=== PATIENT | male | born 1945 | race Caucasian/White ===

== ENCOUNTER → 2018-05-28 | Outpatient (CLI) | payer MEDICARE, BC ==
[~2018-05-28] MED LIST: IOHEXOL 180 MG/ML 10 ML VIAL.; LIDOCAINE 1% PF 2 ML VIAL.; methylPREDNISolone ACETATE 40 MG/ML VIAL.; methylPREDNISolone ACETATE 80 MG/ML VIAL.
== END ==
LOC: PNCL 10:12
DX: M51.16 Intervertebral disc disorders with radiculopathy, lumbar region (principal); M48.061 Spinal stenosis, lumbar region without neurogenic claudication; M96.1 Postlaminectomy syndrome, not elsewhere classified; I10 Essential (primary) hypertension; I25.10 Atherosclerotic heart disease of native coronary artery without angina pectoris; Z87.39 Personal history of other diseases of the musculoskeletal system and connective tissue; Z96.653 Presence of artificial knee joint, bilateral; Z98.890 Other specified postprocedural states
CPT/HCPCS: 62323; J1030; J1040; Q9965

== ENCOUNTER → 2018-06-11 | Outpatient (CLI) | payer MEDICARE, BC | END | disposition home or self-care (01) | LOC: PNCL 09:32 | DX: M51.16 Intervertebral disc disorders with radiculopathy, lumbar region (principal); M48.061 Spinal stenosis, lumbar region without neurogenic claudication; M96.1 Postlaminectomy syndrome, not elsewhere classified; I25.10 Atherosclerotic heart disease of native coronary artery without angina pectoris; I10 Essential (primary) hypertension; Z98.890 Other specified postprocedural states; Z96.653 Presence of artificial knee joint, bilateral; Z87.39 Personal history of other diseases of the musculoskeletal system and connective tissue | CPT/HCPCS: 62323; J1030; J1040; Q9965 ==

== ENCOUNTER → 2018-06-25 | Outpatient (CLI) | payer MEDICARE, BC | END | disposition home or self-care (01) | LOC: PNCL 09:02 | DX: M51.16 Intervertebral disc disorders with radiculopathy, lumbar region (principal); M48.061 Spinal stenosis, lumbar region without neurogenic claudication; I10 Essential (primary) hypertension; I25.10 Atherosclerotic heart disease of native coronary artery without angina pectoris; Z87.39 Personal history of other diseases of the musculoskeletal system and connective tissue; Z96.653 Presence of artificial knee joint, bilateral | CPT/HCPCS: G0463 ==

== ENCOUNTER → 2018-07-01 | Outpatient (CLI) | payer MEDICARE, BC ==
[~2018-07-01] MED LIST changes: -LIDOCAINE 1% PF 2 ML VIAL.
== END | disposition home or self-care (01) ==
LOC: PNCL 08:12
DX: M51.16 Intervertebral disc disorders with radiculopathy, lumbar region (principal); M48.061 Spinal stenosis, lumbar region without neurogenic claudication; M96.1 Postlaminectomy syndrome, not elsewhere classified; I10 Essential (primary) hypertension; I25.10 Atherosclerotic heart disease of native coronary artery without angina pectoris; Z87.39 Personal history of other diseases of the musculoskeletal system and connective tissue; Z96.653 Presence of artificial knee joint, bilateral; Z98.890 Other specified postprocedural states; Z79.899 Other long term (current) drug therapy
CPT/HCPCS: 62323; J1030; J1040; Q9965

== ENCOUNTER → 2018-07-30 | Outpatient (CLI) | payer MEDICARE, BC ==
[~2018-07-30] MED LIST changes: +ALFU10TA3 PO; +ALLO100T PO; +ATOR10TA60 PO; +CARV12.52 PO; +FENO145T30 PO; -IOHEXOL 180 MG/ML 10 ML VIAL.; +IOHEXOL 180 MG/ML 10 ML VIAL. IT ONE; +LANS30CA PO; +LIDOCAINE WITH 8.4% SOD BICARB 3 ML DISP.SYRIN. INJ ONE; +LISI-334 PO; +TICA90TA PO; -methylPREDNISolone ACETATE 40 MG/ML VIAL.; -methylPREDNISolone ACETATE 80 MG/ML VIAL.
[2018-07-30 13:40] VITALS: BP 127/71
--- NOTE | 2018-07-30 14:14 | RAD ---
Lumbar myelogram, 07/30/2018: History: Right leg pain, ruptured disc, previous back surgery Under local anesthesia, aseptic conditions and fluoroscopic guidance a lumbar puncture was performed at the mid L2 level utilizing a 25-gauge Mary Jo spinal needle. Good clear CSF flow was obtained following which 14 cc of Omnipaque 180 was injected into the thecal sac. The spinal needle was then removed and hemostasis obtained. Appropriate lumbar digital imaging was then performed. 2.9 minutes of fluoroscopy time was utilized. 12 fluoroscopic spot images were recorded. The patient tolerated the procedure well and was sent to CT in good condition. The following findings were delineated on the myelogram: 1. Bilateral pedicle screws are in place at L4 and L5 attached longitudinally oriented posterior fixation rods. There is a partially radiopaque disc spacer present at L4-5. 2. There is mild retrolisthesis at L3-4 and to a greater degree at L2-3. This shows very little if any change with upright flexion and extension maneuvers. 3. There is no significant central spinal stenosis from L4 down through S1. 4. At L3-4 there are bilateral extradural defects resulting in moderate narrowing of the width of the thecal sac. 5. At L2-3 there is a moderate anterior extradural defect and mild bilateral extradural defects producing mild narrowing of the thecal sac. 6. At L1-2 there is a moderate anterior extradural defect. CT of the lumbar spine-post myelogram, 07/30/2018: Multidetector CT images were performed with multiplanar reconstructions produced. The following findings are delineated: 1. On the upper most images there are prominent posterior marginal spurs at the T11-12 level this produces mild central spinal stenosis with the thecal sac measuring 7-8 mm in AP diameter. 2. At T12-L1 the central spinal canal and neural foramina are well maintained. 3. At L1-2 there is severe degenerative disc disease with a prominent posterior spur. This extends inferiorly from the disc level. There is a slight retrolisthesis in the supine position for the CT scans. The thecal sac narrows down to an AP diameter of 6-7 mm at the midline. There is mild to moderate inferior foraminal narrowing bilaterally due to the spurring. 4. At L2-3 there is severe degenerative disc disease with moderate posterior spurring there are moderate degenerative changes involving the facet joints with a mild retrolisthesis. The thecal sac narrows down to an AP diameter of 6-7 mm at the midline. The spurring and retrolisthesis is causing moderate bilateral bony foraminal stenosis. 5. At L3-4 there is a slight retrolisthesis in the supine position. There is moderate broad-based posterior disc bulging. There are degenerative changes involving the facet joints with posterior ligamentous thickening. This is producing moderate narrowing of the width of the thecal sac as well as mild to moderate bilateral foraminal narrowing. 6. The surgical implants at L4 and L5 produce artifacts which partially degrade image quality through this region. The central spinal canal is well maintained. There is only minimal foraminal narrowing due to spurring. 7. At L5-S1 there is severe degenerative disc disease with large posterior spurs. There is extensive degenerative change and spurring involving the facet joints bilaterally. The combination of findings is causing moderate bilateral bony foraminal narrowing. The thecal sac measures 8-9 mm in AP diameter at the midline. 8. Incidental note is made of bilateral intrarenal calculi. There is moderate aortic calcific plaque. IMPRESSION: 1. Moderately to severe multilevel degenerative change as described above. 2. Previous posterior spinal fusion and instrumentation at L4-5 without significant stenosis in that region. 3. Mild retrolisthesis at L3-4 and to a greater degree at L2-3 which in conjunction with other degenerative changes is causing moderate central spinal stenosis at those levels as well as bilateral foraminal encroachment, worse at L2-3. 4. Mild to moderate central spinal stenosis at L1-2 and at T11-12 due to large posterior marginal spurs. 5. Moderate bilateral foraminal narrowing at L5-S1 due to spurring. PQRS Compliance Statement: One or more of the following individualized dose reduction techniques were utilized for this examination: 1. Automated exposure control 2. Adjustment of the mA and/or kV according to patient size 3. Use of iterative reconstruction technique
[2018-07-30 14:20] VITALS: BP 131/80
== END | disposition home or self-care (01) ==
LOC: RAD 12:25
PROVIDERS: ATTEND Neurological Surgery
DX: M48.061 Spinal stenosis, lumbar region without neurogenic claudication (principal); M48.07 Spinal stenosis, lumbosacral region; M51.37 Other intervertebral disc degeneration, lumbosacral region; Z79.899 Other long term (current) drug therapy; Z96.653 Presence of artificial knee joint, bilateral; Z87.39 Personal history of other diseases of the musculoskeletal system and connective tissue
CPT/HCPCS: 72132; 72265; Q9965

== ENCOUNTER → 2019-02-03 | Outpatient (CLI) | payer MEDICARE, BC ==
[2018-07-30 14:20] VITALS: BP 131/80
[~2019-02-03] MED LIST changes: +ASPI-630 PO; +CARV12.511 PO; -CARV12.52 PO; +CHOL100013 PO; -IOHEXOL 180 MG/ML 10 ML VIAL. IT ONE; -LIDOCAINE WITH 8.4% SOD BICARB 3 ML DISP.SYRIN. INJ ONE; +NITR0.4T22 SL; +TRAM50TA PO; +WARF2TAB96 PO
[2019-02-03 09:26] LABS: BASO # 0.1 x10^3/uL (0.0-0.2); BASO % 1 % (0-3); EOS % 1 % (0-3); HEMATOCRIT 41.6 % (39.0-53.0); HEMOGLOBIN 13.3 g/dL (13.0-17.5); LYMPH # 2.2 x10^3/uL (1.0-4.8); LYMPH % 26 % (24-48); MEAN CORPUSCULAR HEMOGLOBIN 29 pg (25-35); MEAN CORPUSCULAR HGB CONC 32 g/dL (31-37); MEAN CORPUSCULAR VOLUME 90 fL (79-100); MONO # 0.8 x10^3/uL (0.0-1.1); MONO % 10 % (0-9); NEUT # 5.2 x10^3uL (1.8-7.7); NEUT % 62 % (31-73); PLATELET COUNT 320 x10^3/uL (140-400); RED BLOOD COUNT 4.62 x10^6/uL (4.30-5.70); RED CELL DISTRIBUTION WIDTH 15.7 % (11.5-14.5); WHITE BLOOD COUNT 8.4 x10^3/uL (4.0-11.0)
[2019-02-03 09:40] LABS: BILIRUBIN,URINE NEGATIVE (NEG); CLARITY,URINE CLEAR; COLOR,URINE YELLOW; NITRITE,URINE NEGATIVE (NEG); PROTEIN,URINE NEGATIVE (NEG-TRACE); UROBILINOGEN,URINE 0.2 mg/dL (0.2 mg/dL)
[2019-02-03 09:42] LABS: PROTHROMBIN TIME PATIENT 15.4 SEC (11.7-14.0)
[2019-02-03 09:54] LABS: BACTERIA,URINE 0 /HPF (0-FEW); SQUAMOUS EPITHELIAL CELL,UR FEW /LPF; WBC,URINE 0 /HPF (0-4)
[2019-02-03 10:06] LABS: ALBUMIN 3.2 g/dL (3.4-5.0); CALCIUM 9.3 mg/dL (8.5-10.1); CREATININE 1.1 mg/dL (0.7-1.3); POTASSIUM 4.4 mmol/L (3.5-5.1)
--- NOTE | 2019-02-03 14:26 | RAD ---
EXAM: Chest, 2 views. HISTORY: Hypertension. Preoperative evaluation. COMPARISON: None. FINDINGS: 2 views the chest are obtained. There is no infiltrate, pleural effusion or pneumothorax. The heart is normal in size. IMPRESSION: No acute pulmonary finding. Electronically signed by: Rea Sykes MD (02/03/2019 2:23 PM) [id number]
== END | disposition home or self-care (01) ==
LOC: SURGPAT 13:13
PROVIDERS: ATTEND Orthopaedic Surgery
DX: M16.11 Unilateral primary osteoarthritis, right hip (principal)
CPT/HCPCS: 36415; 71046; 80048; 81001; 82040; 85025; 85610; 85651; 85730; 87641

== ENCOUNTER → 2019-07-07 | Outpatient (CLI) | payer MEDICARE, BC ==
[2019-02-21 07:44] VITALS: BP 145/71
[~2019-07-07] MED LIST changes: +ASPI81TA50 PO; +CHOL100016 PO; +OXYC5CAP PO; +WARF1TAB69 PO
[2019-07-07 11:39] LABS: BASO # 0.1 x10^3/uL (0.0-0.2); BASO % 1 % (0-3); EOS # 0.2 x10^3/uL (0.0-0.7); EOS % 2 % (0-3); HEMATOCRIT 40.7 % (39.0-53.0); HEMOGLOBIN 13.6 g/dL (13.0-17.5); LYMPH # 1.5 x10^3/uL (1.0-4.8); LYMPH % 17 % (24-48); MEAN CORPUSCULAR HEMOGLOBIN 29 pg (25-35); MEAN CORPUSCULAR HGB CONC 33 g/dL (31-37); MEAN CORPUSCULAR VOLUME 87 fL (79-100); MONO # 0.6 x10^3/uL (0.0-1.1); MONO % 7 % (0-9); NEUT # 6.5 x10^3/uL (1.8-7.7); NEUT % 74 % (31-73); PLATELET COUNT 263 x10^3/uL (140-400); RED BLOOD COUNT 4.68 x10^6/uL (4.30-5.70); RED CELL DISTRIBUTION WIDTH 15.9 % (11.5-14.5); WHITE BLOOD COUNT 8.8 x10^3/uL (4.0-11.0)
[2019-07-07 11:43] LABS: BILIRUBIN,URINE NEGATIVE (NEG); CLARITY,URINE CLEAR; COLOR,URINE YELLOW; NITRITE,URINE NEGATIVE (NEG); PH,URINE 5.5; PROTEIN,URINE NEGATIVE (NEG-TRACE); UROBILINOGEN,URINE 0.2 mg/dL (0.2 mg/dL)
[2019-07-07 11:46] LABS: ALBUMIN 3.2 g/dL (3.4-5.0); CALCIUM 8.9 mg/dL (8.5-10.1); CREATININE 1.1 mg/dL (0.7-1.3); GFR 65.8; POTASSIUM 4.2 mmol/L (3.5-5.1)
[2019-07-07 11:49] LABS: PROTHROMBIN TIME PATIENT 15.4 SEC (11.7-14.0)
[2019-07-07 11:52] LABS: BACTERIA,URINE 0 /HPF (0-FEW); RBC,URINE OCC /HPF (0-2); SQUAMOUS EPITHELIAL CELL,UR MOD /LPF; WBC,URINE OCC /HPF (0-4)
== END | disposition home or self-care (01) ==
LOC: SURGPAT 10:21
PROVIDERS: ATTEND Orthopaedic Surgery
DX: Z01.818 Encounter for other preprocedural examination (principal); M17.12 Unilateral primary osteoarthritis, left knee; Z79.899 Other long term (current) drug therapy
CPT/HCPCS: 36415; 80048; 81001; 82040; 82306; 85025; 85610; 85651; 85730; 87641

== ENCOUNTER 2019-07-22 07:30 | Inpatient (IN) | payer MEDICARE, BC ==
[~2019-07-22] VITALS: Ht 172.7 cm; Wt 106.1 kg
[~2019-07-22 07:30] MED LIST changes: -CHOL100016 PO; -OXYC5CAP PO; -WARF1TAB69 PO
[2019-08-05] VITALS (8 sets, daily range): BP systolic 139–160; BP diastolic 70–90
[2019-08-05] MEDS ORDERED: HYDROcodone/APAP 7.5/325MG 1 TAB TABLET PO PRN (06:00)
[2019-08-05] MEDS ORDERED: TRANEXAMIC ACID 1,000 MG in IV NS 50ML -- 1ST BAG INJ ONE (06:00)
[2019-08-05] MEDS ORDERED: MORPHINE SULFATE 5 MG, KETOROLAC 30MG VIAL 30 MG, ROPIVacaine 0.5% PF 60 ML, EPINEPHrin... INT ART ONE ×5 (06:00)
[2019-08-05] MEDS ORDERED: MELOXICAM 7.5 MG TABLET PO PRN (06:00)
[2019-08-05] MEDS ORDERED: fentaNYL PF VIAL 100 MCG/2 ML VIAL IV PRN ×2 (07:00→10:15)
[2019-08-05] MEDS ORDERED: PROCHLORPERAZINE 10 MG/2 ML VIAL. IV PRN (07:00)
[2019-08-05] MEDS ORDERED: ONDANSETRON PF 4 MG/2 ML VIAL. IV PRN (07:00)
[2019-08-05] MEDS ORDERED: HYDROmorphone 2 MG/ML VIAL IV PRN (07:00)
[2019-08-05] MEDS ORDERED: IV RINGERS,LACTATED 1000ML 1,000 ML IV SCH (07:00)
[2019-08-05] MEDS ORDERED: TRANEXAMIC ACID 1,000 MG in IV NS 50ML -- 2ND BAG INJ ONE (08:00)
[2019-08-05] MEDS ORDERED: ROCURONIUM 50 MG/5 ML VIAL. ONE (09:10)
[2019-08-05] MEDS ORDERED: fentaNYL PF VIAL 250 MCG/5 ML VIAL ONE (09:10)
[2019-08-05] MEDS ORDERED: DEXAMETHASONE SOD PHOS 4 MG/ML VIAL ONE (09:10)
[2019-08-05] MEDS ORDERED: ONDANSETRON PF 4 MG/2 ML VIAL. ONE (09:10)
[2019-08-05] MEDS ORDERED: PROPOFOL 20 ML IV ONE (09:10)
[2019-08-05] MEDS ORDERED: LIDOCAINE 2% PF 5 ML VIAL. ONE (09:10)
[2019-08-05] MEDS ORDERED: CHOL100016 PO (09:35)
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
[2019-08-05] MEDS ORDERED: NITROGLYCERIN SUBLINGUAL 0.4 MG BOTTLE OF 25. SL PRN (10:15)
[2019-08-05] MEDS ORDERED: IV DEXTROSE 5% 250 ML BAG. IV PRN (10:15)
[2019-08-05] MEDS ORDERED: diphenhydrAMINE 50 MG/ML VIAL IV PRN (10:15)
[2019-08-05] MEDS ORDERED: 0.9 % SODIUM CHLORIDE 10 ML DISP.SYRIN. IV PRN (10:15)
[2019-08-05] MEDS ORDERED: DEXTROSE 50% 25 GM / 50ML DISP.SYRIN. IV PRN (10:15)
[2019-08-05] MEDS ORDERED: MORPHINE SULFATE 2 MG/ML VIAL. IV PRN (10:15)
[2019-08-05] MEDS ORDERED: ZOLPIDEM 5 MG TABLET. PO PRN (10:15)
[2019-08-05] MEDS ORDERED: CALCIUM CARBONATE 500 MG TAB.CHEW PO PRN (10:15)
[2019-08-05] MEDS ORDERED: PROCHLORPERAZINE 5 MG TABLET. PO PRN (10:15)
[2019-08-05 10:16] LABS: PROTHROMBIN TIME PATIENT 15.8 SEC (11.7-14.0)
[2019-08-05] MEDS ORDERED: PHENYLEPHRINE in 0.9% NACL PF 1 MG/10 ML SYRINGE. IV ONE (10:32)
[2019-08-05] MEDS ORDERED: ePHEDrine PF IN SALINE 50 MG/10 ML SYRINGE. IV ONE (10:41)
--- NOTE | 2019-08-05 10:48 | NUR ---
Pharmacy Warfarin Dosing Note S:Pharmacy consulted to assist with anticoagulation therapy started 08/05/19 with target INR: 1.6 - 2.5 O:ENRICO BECK is a 74 year old M with CIRILO LABS: Last INR: 1.3 Last HGB: Last HCT: Last PLT: Last dose of 5 mg given on 08/04/19 at 1700 Previous Regimen: Vitamin K given: Drug Interaction Changes: Ongoing Drug Interactions: A:INR of 1.3 is below desired range. Target range for this patient is: 1.6 - 2.5 P: Warfarin dose: 6 mg Today at 1600 Bridge Therapy: Next INR due IN AM Pharmacy anticoagulation service will continue to follow. KIERAN GUAN [facility], 08/05/19 [id number]
[2019-08-05] MEDS ORDERED: NEOSTIGMINE METHYLSULFATE 5 MG/5 ML SYRINGE. ONE (11:41)
[2019-08-05] MEDS ORDERED: GLYCOPYRROLATE 1 MG/5 ML VIAL. ONE (11:41)
[2019-08-05] MEDS ORDERED: SEVOFLURANE 61 TO 120 MINUTES. IH ONE (11:58)
[2019-08-05] MEDS: ONDANSETRON PF 4 MG/2 ML VIAL. IV SCH ×2 (12:00→17:50)
[2019-08-05] MEDS: ONDANSETRON ODT 4 MG TAB.RAPDIS. PO SCH ×2 (12:00→17:50)
[2019-08-05] MEDS ORDERED: MORPHINE SULFATE 2 MG/ML VIAL. ONE (12:28)
[2019-08-05] MEDS: MORPHINE SULFATE 2 MG/ML VIAL. IV PRN ×2 (12:31→12:42)
[2019-08-05] MEDS ORDERED: fentaNYL PF VIAL 100 MCG/2 ML VIAL ONE (12:39)
[2019-08-05] MEDS: fentaNYL PF VIAL 100 MCG/2 ML VIAL IV PRN ×2 (12:42→12:52)
--- NOTE | 2019-08-05 12:58 | PDOC4 ---
Operative Note Operative Note Date of surgery: 08/05/2019 Preoperative diagnosis: Degenerative joint disease left hip Postoperative diagnosis: Same Operative procedure: Left total hip arthroplasty Surgeon: Nimco Assist: Richard Jimenez nurse practitioner Anesthesia: Gen. Estimated blood loss: 200 mL Complications: None Specimen: Femoral head to pathology Operative indications: Please see my dictated clinic notes and preoperative history and physical for detailed operative indications note that the patient had a previous hip arthroplasty on the contralateral side and was very pleased and is now having symptoms with the degenerative hip very limiting to his activities of daily living. I had reviewed risks benefits postoperative course including the possibility of infection leg length inequality nerve or blood vessel damage medical or other anesthetic complications among others. He is certainly familiar with the procedure and all questions were answered informed consent was obtained to proceed with total hip arthroplasty. Operative text: Patient was identified procedure verified patient placed in the supine position on the operating table. After adequate amounts of general anesthesia were administered she was placed in the decubitus position left side up with the Stulberg hip positioner and all bony prominences well-padded. The hip was then prepped and draped in standard sterile fashion. After timeout was performed patient procedure identified and verified a standard posterior approach was carried out with a curvilinear incision centered over the greater trochanter iliotibial band and gluteal fascia were divided in line with their fibers Charnley retractor was placed external rotators were divided off the insertion hip capsule was split in a T fashion hip was dislocated and femoral neck cut made with the cutting guide. Acetabulum was then exposed labrum and foveal contents were excised successive size reaming carried out up to a size 51 and a size 52 hemispherical cluster hole [employer] sticktight coated shell was impacted into place in proper version a single superiorly oriented screw 40 mm was placed with excellent fixation a 36 mm standard acetabular liner was placed and impacted. Box osteotome and reaming were then carried out and broaching carried out up to a size 14 and leg length and offset were reproduced well with a standard +12 36 mm head with excellent stability to about 70� internal rotation at 90� hip flexion. Trial broach was removed and a size 14 Synergy porous femoral component standard offset was impacted with a 36 mm +12 Oxinium femoral head impacted to engage the Snidre taper reduced and found to have equivalent leg length offset and stability. Thorough irrigation carried out normal saline solution hip capsule was repaired with #5 Ethibond suture external rotators were reapproximated to the bone intraosseously with #5 Ethibond fascia was closed with #5 Ethibond as well after placement of Hemovac drain pain catheter and injection of the pain catheter mixture throughout the joint capsule fascial closure was reinforced with #1 PDS strata fix suture subcutaneous buried Vicryl suture skin closure with abhishek and a bernard drain with Acticoat was placed. Patient was returned recovery room in stable condition having tolerated procedure well. Richard Jimenez nurse practitioner was present for the procedure and assisted in the prepping draping retraction and skin closure. JOSE LUIS DENNIS MD Aug 05, 2019 12:58
--- NOTE | 2019-08-05 13:38 | RAD ---
HIP LEFT 2V WITH PELVIS History: Postop left hip arthroplasty. Technique: AP view the pelvis and 2 additional views of the left hip. Comparison: February 18, 2019. Findings: Interval left total hip arthroplasty. Expected postoperative changes with subcutaneous and intra-articular gas. Surgical drain is noted. Normal limit. No fracture. Overlying skin abhishek. Right total hip arthroplasty. Postop changes lower spine. Impression: 1. Interval left total hip arthroplasty. No immediate hardware complications. Electronically signed by: Fili Judd DO (08/05/2019 1:35 PM) [facility]
[2019-08-05] MEDS: oxyCODONE IR 5 MG TABLET PO PRN ×3 (14:05→22:06)
--- NOTE | 2019-08-05 14:52 | NUR ---
1345 Rec'd from PACU per bed, alert/oriented, dressing to left hip clean, dry & intact, states discomfort level 05/05, ice pack to area, bilateral GREGORIA hose & SCD in place, IVF infusing into left wrist , oriented to surroundings, call light within reach
[2019-08-05] MEDS ORDERED: WARFARIN 7.5 MG TABLET. PO ONE (16:00)
[2019-08-05] MEDS ORDERED: WARFARIN 5 MG TABLET. PO ONE (16:00)
[2019-08-05] MEDS: FERROUS SULFATE 325 MG TABLET. PO SCH (16:48)
[2019-08-05] MEDS: CARVEDILOL 12.5 MG TABLET. PO SCH (16:48)
--- NOTE | 2019-08-05 17:51 | NUR ---
Zofran held, no nausea or vomiting
[2019-08-05] MEDS: KETOROLAC 30MG VIAL 30 MG, BUPIVACAINE MPF 0.25% 20 ML, EPINEPHrine 0.5 MG in TOTAL VOL... INT ART SCH (18:16)
--- NOTE | 2019-08-05 21:00 | NUR ---
Assisted to toilet, unable to void. Encouraged po intake. States he has a hx of straight cathing himself after a spinal surgery.
[2019-08-05] MEDS: ATORVASTATIN CALCIUM 40 MG TABLET. PO SCH (21:06)
[2019-08-05] MEDS: ALLOPURINOL 100 MG TABLET. PO SCH (21:06)
[2019-08-05] MEDS: IV NORMAL SALINE 1000ML BAG 1,000 ML IV SCH (21:06)
[2019-08-06 03:06] VITALS: BP 130/68
--- NOTE | 2019-08-06 03:11 | NUR ---
Bladder scan shows 56cc. NS infusing at 100cc/hr.
[2019-08-06 04:45] LABS: PROTHROMBIN TIME PATIENT 18.7 SEC (11.7-14.0)
--- NOTE | 2019-08-06 05:23 | NUR ---
Voided 175cc denisha urine per urinal
[2019-08-06] MEDS: KETOROLAC 30MG VIAL 30 MG, BUPIVACAINE MPF 0.25% 20 ML, EPINEPHrine 0.5 MG in TOTAL VOL... INT ART SCH (05:58)
[2019-08-06] MEDS: ONDANSETRON ODT 4 MG TAB.RAPDIS. PO SCH ×2 (06:00)
[2019-08-06] MEDS: ONDANSETRON PF 4 MG/2 ML VIAL. IV SCH ×2 (06:00)
[2019-08-06] MEDS ORDERED: MAGNESIUM HYDROXIDE 2,400 MG/30 ML ORAL.SUSP. PO PRN (06:00)
[2019-08-06] MEDS: PANTOPRAZOLE 40 MG TABLET.DR. PO SCH (06:04)
[2019-08-06] MEDS: GABAPENTIN 100 MG CAPSULE. PO SCH ×3 (06:04→22:11)
[2019-08-06] MEDS: traMADol 50 MG TABLET PO SCH ×3 (06:05→16:59)
[2019-08-06 06:28] VITALS: BP 136/77
[2019-08-06 06:56] LABS: RED BLOOD COUNT 3.83 x10^6/uL (4.30-5.70); RED CELL DISTRIBUTION WIDTH 15.4 % (11.5-14.5); WHITE BLOOD COUNT 11.3 x10^3/uL (4.0-11.0)
--- NOTE | 2019-08-06 07:40 | PDOC ---
ORTHO PROGRESS NOTES Subjective Patient states pain mild at this time. concerned that not urinating enough. Post-op Day: 1 Procedure L CIRILO Vitals Vital Signs Date Time Temp Pulse Resp B/P (MAP) Pulse Ox O2 Delivery O2 Flow Rate FiO2 08/06/19 06:28 97.8 73 20 136/77 (96) 98 Room Air 97.8 08/05/19 18:24 2.0 Labs Laboratory Tests Test 08/05/19 09:10 08/06/19 03:55 Prothrombin Time 15.8 SEC (11.7-14.0) 18.7 SEC (11.7-14.0) Prothromb Time International Ratio 1.3 (0.8-1.1) 1.6 (0.8-1.1) Activated Partial Thromboplast Time 30 SEC (24-38) White Blood Count 11.3 x10^3/uL (4.0-11.0) Red Blood Count 3.83 x10^6/uL (4.30-5.70) Hemoglobin 11.0 g/dL (13.0-17.5) Hematocrit 34.0 % (39.0-53.0) Mean Corpuscular Volume 89 fL (79-100) Mean Corpuscular Hemoglobin 29 pg (25-35) Mean Corpuscular Hemoglobin Concent 33 g/dL (31-37) Red Cell Distribution Width 15.4 % (11.5-14.5) Platelet Count 204 x10^3/uL (140-400) Laboratory Tests Test 08/05/19 09:10 08/06/19 03:55 Prothrombin Time 15.8 SEC (11.7-14.0) 18.7 SEC (11.7-14.0) Prothromb Time International Ratio 1.3 (0.8-1.1) 1.6 (0.8-1.1) Activated Partial Thromboplast Time 30 SEC (24-38) White Blood Count 11.3 x10^3/uL (4.0-11.0) Red Blood Count 3.83 x10^6/uL (4.30-5.70) Hemoglobin 11.0 g/dL (13.0-17.5) Hematocrit 34.0 % (39.0-53.0) Mean Corpuscular Volume 89 fL (79-100) Mean Corpuscular Hemoglobin 29 pg (25-35) Mean Corpuscular Hemoglobin Concent 33 g/dL (31-37) Red Cell Distribution Width 15.4 % (11.5-14.5) Platelet Count 204 x10^3/uL (140-400) Notes Awake and alert Assessment and Plan S/P Left Total Hip Arthroplasty motor and sensory intact distally calf soft and non tender dressing dry and intact encourage PO fluids PT today MARIA ELENA BALBUENA APRN Aug 06, 2019 07:40
[2019-08-06] MEDS: FENOFIBRATE,MICRONIZED 134 MG CAPSULE PO SCH (07:55)
[2019-08-06] MEDS: ALLOPURINOL 100 MG TABLET. PO SCH ×2 (07:55→21:13)
[2019-08-06] MEDS: ASPIRIN ENTERIC COATED 81 MG TABLET.DR. PO SCH (07:55)
[2019-08-06] MEDS: MELOXICAM 7.5 MG TABLET PO SCH (07:56)
[2019-08-06] MEDS: MULTIVITAMIN with MINERAL TABLET. PO SCH (07:56)
[2019-08-06] MEDS: SENNOSIDES/DOCUSATE 8.6/50MG TABLET. PO SCH (07:56)
[2019-08-06] MEDS: FERROUS SULFATE 325 MG TABLET. PO SCH ×2 (07:56→16:58)
[2019-08-06] MEDS: CARVEDILOL 12.5 MG TABLET. PO SCH ×2 (07:57→16:58)
[2019-08-06] MEDS: LISINOPRIL 20 MG TABLET PO SCH (07:59)
[2019-08-06 08:00] VITALS: BP 153/70
[2019-08-06] MEDS: oxyCODONE IR 5 MG TABLET PO PRN (09:04)
[2019-08-06] MEDS: IV NORMAL SALINE 1000ML BAG 1,000 ML IV SCH (10:09)
[2019-08-06 11:40] VITALS: BP 104/62
[2019-08-06] MEDS ORDERED: ONDANSETRON PF 4 MG/2 ML VIAL. IV PRN (12:00)
[2019-08-06] MEDS ORDERED: ONDANSETRON ODT 4 MG TAB.RAPDIS. PO PRN (12:00)
--- NOTE | 2019-08-06 14:13 | NUR ---
Pharmacy Warfarin Dosing Note S:Pharmacy consulted to assist with anticoagulation therapy started 08/04/19 with target INR: 1.6 - 2.5 O:ENRICO BECK is a 74 year old M with CIRILO LABS: Last INR: 1.6 Last HGB: 11 Last HCT: 34 Last PLT: 204 Last dose of 5 mg given on 08/05/19 at 1654 Previous Regimen: Vitamin K given: Drug Interaction Changes: Same Interacting Drug Ongoing Drug Interactions: FENOFIBRATE, ALLOPURINOL A:INR of 1.6 is within desired range. Target range for this patient is: 1.6 - 2.5 P: Warfarin dose: 3 mg Today at 1600 Bridge Therapy: Next INR due tomorrow Pharmacy anticoagulation service will continue to follow. Renita Melvin RPH, 08/06/19 [id number]
[2019-08-06] MEDS: ACETAMINOPHEN 500 MG TABLET PO SCH ×2 (15:06→21:13)
[2019-08-06] MEDS ORDERED: BISACODYL 10 MG SUPP.RECT. PR PRN (16:00)
[2019-08-06] MEDS ORDERED: WARFARIN 3 MG TABLET. PO ONE (16:00)
[2019-08-06 17:04] VITALS: BP 120/48
--- NOTE | 2019-08-06 19:02 | NUR ---
Anjum encouraged to drink fluids. has drank 700cc and voided 400cc this shift. bladder scan done with 50cc residual.
[2019-08-06] MEDS: ATORVASTATIN CALCIUM 40 MG TABLET. PO SCH (21:13)
[2019-08-07] MEDS: ACETAMINOPHEN 500 MG TABLET PO SCH ×4 (03:00→21:12)
[2019-08-07 04:44] LABS: HEMATOCRIT 31.9 % (39.0-53.0); HEMOGLOBIN 10.6 g/dL (13.0-17.5)
[2019-08-07 04:57] LABS: PROTHROMBIN TIME PATIENT 26.6 SEC (11.7-14.0)
[2019-08-07 05:41] VITALS: BP 132/70
[2019-08-07] MEDS: traMADol 50 MG TABLET PO SCH ×4 (06:10→17:05)
[2019-08-07] MEDS: PANTOPRAZOLE 40 MG TABLET.DR. PO SCH (06:10)
[2019-08-07] MEDS: GABAPENTIN 100 MG CAPSULE. PO SCH ×3 (06:11→22:52)
[2019-08-07] MEDS: MELOXICAM 7.5 MG TABLET PO SCH (07:57)
[2019-08-07] MEDS: FERROUS SULFATE 325 MG TABLET. PO SCH ×2 (07:57→16:17)
[2019-08-07] MEDS: ASPIRIN ENTERIC COATED 81 MG TABLET.DR. PO SCH (07:57)
[2019-08-07] MEDS: ALLOPURINOL 100 MG TABLET. PO SCH ×2 (07:57→21:12)
[2019-08-07] MEDS: FENOFIBRATE,MICRONIZED 134 MG CAPSULE PO SCH (07:58)
[2019-08-07] MEDS: SENNOSIDES/DOCUSATE 8.6/50MG TABLET. PO SCH (07:58)
[2019-08-07] MEDS: MULTIVITAMIN with MINERAL TABLET. PO SCH (07:58)
[2019-08-07] MEDS: CARVEDILOL 12.5 MG TABLET. PO SCH ×2 (07:58→17:05)
[2019-08-07] MEDS: LISINOPRIL 20 MG TABLET PO SCH (07:59)
--- NOTE | 2019-08-07 11:02 | NUR ---
Pharmacy Warfarin Dosing Note S:Pharmacy consulted to assist with anticoagulation therapy started 08/04/19 with target INR: 1.6 - 2.5 O:ENRICO BECK is a 74 year old M with CIRILO LABS: Last INR: 2.5 Last HGB: 10.6 Last HCT: 31.9 Last PLT: 204 Last dose of 3 mg given on 08/06/19 at 1658 Ongoing Drug Interactions: FENOFIBRATE, ALLOPURINOL, MELOXICAM A:INR of 2.5 is within desired range. Target range for this patient is: 1.6 - 2.5 P: Warfarin dose: 1 mg Today at 1600 Bridge Therapy: None Next INR due 08/08/19 AM Pharmacy anticoagulation service will continue to follow. THEA AYALA RP, 08/07/19 [id number]
[2019-08-07] MEDS ORDERED: WARFARIN 1 MG TABLET. PO ONE (16:00)
[2019-08-07 17:06] VITALS: BP 148/74
--- NOTE | 2019-08-07 18:01 | PDOC ---
PROGRESS NOTES Subjective Subjective Problems overnight: Getting around reasonably well with walker pain controlled Objective Vital Signs Vital Signs Date Time Temp Pulse Resp B/P (MAP) Pulse Ox O2 Delivery O2 Flow Rate FiO2 08/07/19 17:06 97.7 71 18 148/74 (98) 96 Room Air 97.7 08/05/19 18:24 2.0 Physical Exam Sri dressing intact leg lengths equal distal neurovascular status intact Labs Laboratory Tests Test 08/06/19 03:55 08/07/19 04:35 White Blood Count 11.3 x10^3/uL (4.0-11.0) Red Blood Count 3.83 x10^6/uL (4.30-5.70) Hemoglobin 11.0 g/dL (13.0-17.5) 10.6 g/dL (13.0-17.5) Hematocrit 34.0 % (39.0-53.0) 31.9 % (39.0-53.0) Mean Corpuscular Volume 89 fL (79-100) Mean Corpuscular Hemoglobin 29 pg (25-35) Mean Corpuscular Hemoglobin Concent 33 g/dL (31-37) 33 g/dL (31-37) Red Cell Distribution Width 15.4 % (11.5-14.5) Platelet Count 204 x10^3/uL (140-400) Prothrombin Time 18.7 SEC (11.7-14.0) 26.6 SEC (11.7-14.0) Prothromb Time International Ratio 1.6 (0.8-1.1) 2.5 (0.8-1.1) Laboratory Tests Test 08/07/19 04:35 Hemoglobin 10.6 g/dL (13.0-17.5) Hematocrit 31.9 % (39.0-53.0) Mean Corpuscular Hemoglobin Concent 33 g/dL (31-37) Prothrombin Time 26.6 SEC (11.7-14.0) Prothromb Time International Ratio 2.5 (0.8-1.1) Assessment Assessment POD# 2 left total hip arthroplasty Plan Plan of Care Continue weightbearing as tolerated standard total hip precautions Warfarin anticoagulation Anticipate discharge tomorrow JOSE LUIS DENNIS MD Aug 07, 2019 18:01
[2019-08-07] MEDS: ATORVASTATIN CALCIUM 40 MG TABLET. PO SCH (21:12)
[2019-08-08] MEDS: traMADol 50 MG TABLET PO SCH ×3 (03:20→11:50)
[2019-08-08] MEDS: ACETAMINOPHEN 500 MG TABLET PO SCH ×2 (03:20→11:50)
[2019-08-08 06:10] VITALS: BP 130/75
--- NOTE | 2019-08-08 06:35 | NUR ---
Ultram given at 0320. 0600 dose held. Ambulating independently. Anticipates dismissal today.
[2019-08-08 06:44] LABS: HEMOGLOBIN 10.5 g/dL (13.0-17.5)
[2019-08-08] MEDS: PANTOPRAZOLE 40 MG TABLET.DR. PO SCH (06:45)
[2019-08-08] MEDS: GABAPENTIN 100 MG CAPSULE. PO SCH ×2 (06:45→14:29)
[2019-08-08 06:52] LABS: PROTHROMBIN TIME PATIENT 27.1 SEC (11.7-14.0)
[2019-08-08] MEDS: FENOFIBRATE,MICRONIZED 134 MG CAPSULE PO SCH (08:16)
[2019-08-08] MEDS: FERROUS SULFATE 325 MG TABLET. PO SCH (08:16)
[2019-08-08] MEDS: ALLOPURINOL 100 MG TABLET. PO SCH (08:16)
[2019-08-08] MEDS: SENNOSIDES/DOCUSATE 8.6/50MG TABLET. PO SCH (08:16)
[2019-08-08] MEDS: MULTIVITAMIN with MINERAL TABLET. PO SCH (08:16)
[2019-08-08] MEDS: MELOXICAM 7.5 MG TABLET PO SCH (08:16)
[2019-08-08] MEDS: ASPIRIN ENTERIC COATED 81 MG TABLET.DR. PO SCH (08:16)
[2019-08-08] MEDS: oxyCODONE IR 5 MG TABLET PO PRN ×2 (08:17→16:41)
[2019-08-08] MEDS: CARVEDILOL 12.5 MG TABLET. PO SCH (08:18)
--- NOTE | 2019-08-08 10:48 | NUR ---
Pharmacy Warfarin Dosing Note S:Pharmacy consulted to assist with anticoagulation therapy started 08/04/19 with target INR: 1.6 - 2.5 O:ENRICO BECK is a 74 year old M with CIRILO LABS: Last INR: 2.5 Last HGB: 10.610.5 Last HCT: 31.0 Last PLT: 204 Last dose of 1 mg given on 08/07/19 at 1617 Previous Regimen: Vitamin K given: Drug Interaction Changes: Same Interacting Drug Ongoing Drug Interactions: FENOFIBRATE, ALLOPURINOL, MELOXICAM A:INR of 2.5 is within desired range. Target range for this patient is: 1.6 - 2.5 P: Warfarin dose: 2 mg Today at 1400. Bridge Therapy: None Next INR due Sunday with [facility]. Pharmacy anticoagulation service will continue to follow. Angelito Ramsay [facility], 08/08/19 0230
[2019-08-08] MEDS ORDERED: WARF2TAB96 PO (10:55)
[2019-08-08 11:32] VITALS: BP 146/73
[2019-08-08] MEDS ORDERED: WARF1TAB69 PO (11:39)
[2019-08-08 11:51] VITALS: BP 146/73
[2019-08-08] MEDS: LISINOPRIL 20 MG TABLET PO SCH (11:51)
[2019-08-08] MEDS ORDERED: WARFARIN 2 MG TABLET. PO ONE (14:00)
--- NOTE | 2019-08-08 15:11 | NUR ---
reviewed discharge orders with sister and harry. reviewed restrictions to activities of daily living such as bathing,,driving weekly blood draws and incisional care. both verbalized understanding.
[2019-08-08] MEDS ORDERED: OXYC5CAP PO (16:06)
--- NOTE | 2019-08-08 16:07 | SNU/HH DC ---
DISCHARGE WITH HOME HEALTH DISCHARGE INFORMATION: Final Diagnosis: Problems Medical Problems: (1) Degenerative joint disease of left hip Status: Chronic Condition on Discharge: Stable CODE STATUS: Code Status: Full HOME HEALTH: Face to Face: I certify this patient is under my care and that I, or a nurse practitioner or physician's certified physician's assistant working with me, had a face to face encounter that meets the physician face to face encounter requirements with this patient on []. Medical Complications: S/P Joint Replacement RN For Eval/Treatment: Yes Physical Therapy For: Evalulation/Treatment Pt Meets Homebound Status: Limited distance walking POST DISCHARGE ORDERS: Activity Instructions for Disc: Activity as tolerated, Progressive ambulation Weight Bearing Status after Di: As tolerated Wound/Incision Care: Ice to area for comfort, Do not change dressing Other wound/incision instructi: REMOVE BATTERY PACK ON sunday UNSCREW TUBING AND TAPE DOWNWARDS CHECKS AFTER DISCHARGE: Comment: PT/INR -drawn 08/11;08/18; 08/25 and 09/01 ; 09/08 FOLLOW-UP: Follow Up With: have appt 08/[address] Rinaldi Warfarin Follow UP: [facility] managing coumadin??? call [phone] TREATMENT/EQUIPMENT ORDERS: Adaptive Equipment Issued: Steven Alicea CERTIFICATION STATEMENT: Certification Statement: Certification Statement: Based on the above finding, I certify that this patient is confined to the home and needs intermittent alf care, physical therapy and/or speech therapy, or continues to need occupational therapy.~ This patient is under my care, and I have initiated the establishment of the plan of care.~ This patient will be followed by myself or a community physician who will periodically review the plan of care. Home Meds Reported Medications Warfarin Sodium (WARFARIN SODIUM) 1 Mg Tablet, 1 MG PO MWF for BLOOD THINNER for 42 Days, #40 TAB 0 Refills 08/08/19 Warfarin Sodium (WARFARIN SODIUM) 2 Mg Tablet, 2 MG PO SuTuThSa for blood thinner, #45 TAB 0 Refills 08/08/19 Cholecalciferol (Vitamin D3) (VITAMIN D3) 1,000 Unit Tab.chew, 1000 UNIT PO DAILY for SUPPLEMENT, TAB.CHEW 08/05/19 Aspirin (ASPIR-LOW) 81 Mg Tablet.dr, 1 TAB PO DAILY for HEART, #30 TAB 3 Refills 8/12/19 Nitroglycerin (NITROGLYCERIN SubLingual) 0.4 Mg Tab.subl, 0.4 MG SL PRN Q5MIN PRN for CHEST PAIN, BOTTLE 02/03/19 Fenofibrate Nanocrystallized (FENOFIBRATE) 145 Mg Tablet, 1 TAB PO DAILY, #30 TAB 5 Refills 05/28/18 Lisinopril (LISINOPRIL) 20 Mg Tablet, 20 MG PO DAILY for FOR HYPERTENSION, #30 TAB 0 Refills 05/28/18 Atorvastatin Calcium (ATORVASTATIN CALCIUM) 10 Mg Tablet, 80 MG PO DAILY for CONTROL CHOLESTEROL, #30 TAB 5 Refills 05/28/18 Lansoprazole (LANSOPRAZOLE) 30 Mg Capsule.dr, 1 CAP PO DAILY, #30 CAP 5 Refills 05/28/18 Allopurinol (ALLOPURINOL) 100 Mg Tablet, 100 MG PO BID, TAB 05/28/18 Carvedilol (CARVEDILOL ) 12.5 Mg Tablet, 12.5 MG PO BIDWMEALS, TAB 05/28/18 JOSE LUIS RINALDI MD Aug 08, 2019 16:07
--- NOTE | 2019-08-08 17:01 | NUR ---
reviewed discharge medications with sister and harry. especially reviewed coumadin and pain med especially side effects verbalized understanding
--- NOTE | 2019-08-08 23:44 | DS ---
DATE OF DISCHARGE: 08/08/2019 PRINCIPAL DIAGNOSIS: Degenerative joint disease of left hip. PROCEDURE: Left total hip arthroplasty. DISPOSITION: Home with home health, followup Dr. Rinaldi in 2 weeks. ACTIVITY: Weightbearing as tolerated, standard total hip precautions. Maintain MORALES drain. DISPOSITION MEDICATIONS: Coumadin as directed by Anticoagulation Clinic, oxycodone 5 mg p.o. q.4 hours p.r.n. pain. Resume other preoperative medications. BRIEF DESCRIPTION OF HOSPITAL COURSE: The patient underwent uncomplicated total hip arthroplasty, remained stable, had some expected postoperative soreness, noted his leg turning inward somewhat due to some weakness. We have emphasized that this is normal, he can continue to progress with activities, progress through well with physical therapy, assistance of a walker and was otherwise performing activities of daily living safely and was discharged to home in stable condition. JOSE LUIS RINALDI MD DR: PENG/cherelle JOB#: [id number] / [id number]
== END 2019-08-08 17:04 | disposition home health service (06) | DRG 470 ==
LOC: OPSVCIP 08-05 08:39 → EDSTATUS 08-05 10:15 → 4 SOUTHEST 08-05 13:44
PROVIDERS: ADMIT Orthopaedic Surgery; ATTEND Orthopaedic Surgery
PROC: 0SRB06Z Replacement of Left Hip Joint with Oxidized Zirconium on Polyethylene Synthetic Substitute, Open Approach (ICD-10-PCS; principal; 2019-08-05 10:15)
DX: M16.12 Unilateral primary osteoarthritis, left hip (principal); I10 Essential (primary) hypertension; E78.5 Hyperlipidemia, unspecified; K21.9 Gastro-esophageal reflux disease without esophagitis; N40.0 Benign prostatic hyperplasia without lower urinary tract symptoms; M10.9 Gout, unspecified; Z96.641 Presence of right artificial hip joint; Z96.653 Presence of artificial knee joint, bilateral; Z87.11 Personal history of peptic ulcer disease; Z98.1 Arthrodesis status
CPT/HCPCS: 36415; 73502; 85014; 85018; 85027; 85610; 85730; 86850; 86900; 86901; A7015; C1713; J0171; J0696; J1100; J1885; J2001; J2270; J2370; J2405; J2704; J2710; J2795; J3010; J3490; J7030; J7120; 97116; 97150; 97530; 97535; G0378